=== PATIENT | female | born 1975 | race Caucasian/White ===

== ENCOUNTER 2020-03-21 15:27 | Emergency (ER) | payer MEDICAID ==
[~2020-03-21] VITALS: Ht 162.6 cm; Wt 50.8 kg
[2020-03-21 16:36] VITALS: BP 120/87
--- NOTE | 2020-03-21 16:44 | NUR ---
COVID SWAB DONE.
--- NOTE | 2020-03-21 16:45 | NUR ---
C/O COUGH, SOB AT NIGHT, LAURA,BODY ACHE X 3 DAYS. BOYFRIEND HAS COVID TESTED POSITIVE. MED HX: DENIES
--- NOTE | 2020-03-21 17:24 | NUR ---
Patient discharged with v/s stable. Written and verbal after care instructions given and explained. Patient alert, oriented and verbalized understanding of instructions. Ambulatory with steady gait. All questions addressed prior to discharge. ID band removed. Patient advised to follow up with PMD. Rx of IBUPROFEN, ACETAMINOPHEN & ROBITUSSIN given. Patient educated on indication of medication including possible reaction and side effects. Opportunity to ask questions provided and answered.
[2020-03-21 17:25] VITALS: BP 120/87
== END 2020-03-21 17:24 | disposition home or self-care (01) ==
LOC: MED 15:27
DX: B34.9 Viral infection, unspecified (principal); Z20.828 Contact with and (suspected) exposure to other viral communicable diseases
CPT/HCPCS: 99283; U0003